=== PATIENT | male | born 1955 | race Hispanic/Latino ===

== ENCOUNTER 2016-12-11 11:24 | Emergency (ER) | payer BC ==
[2016-12-11 12:36] LABS: Basophils % (Auto) 0.8 % (0.0-1.8); Eosinophils % (Auto) 1.9 % (0.0-4.3); Hemoglobin 15.1 gm/dl (11.8-15.2); Mean Corpuscular HGB Conc 32 % (32-34); Mean Corpuscular Volume 81 fl (84-94); Platelet Count 281 K/mm3 (140-440); Red Blood Count 5.85 M/mm3 (3.65-5.03); Red Cell Distribution Width 14.3 % (13.2-15.2); White Blood Count 7.1 K/mm3 (4.5-11.0)
[2016-12-11 12:39] LABS: Hematocrit 47.3 % (35.5-45.6); Mean Corpuscular Hemoglobin 26 pg (28-32)
[2016-12-11 12:56] LABS: BUN/Creatinine Ratio 21.53; Calcium 10.4 mg/dL (8.4-10.2)
[2016-12-11 12:57] LABS: Chloride 87.9 mmol/L (98-107); Potassium 4.9 mmol/L (3.6-5.0)
[2016-12-11] MEDS ORDERED: NACL 0.9% 1000 ML 1,000 ML IV ONE ×2 (13:13→15:00)
[2016-12-11 13:47] LABS: B-Hydroxybutyrate 5.5 mg/dL (0.2-2.8)
--- NOTE | 2016-12-11 14:21 | Admit Criteria Form ---
Admission Criteria Documentation: DIABETES Clinical Indications for Admission to Inpatient Care (Place 'X' for any and all applicable criteria): Admission is indicated by presence of ALL (if I & II) or ANY ONE (if III or IV) of the following (1)(2)(3)(4): [ ]I. Diabetes is uncontrolled as indicated by ANY ONE of the following: [ ]a) Diabetic ketoacidosis as indicated by ALL of the following (8): [ ]i) Hyperglycemia (eg, plasma glucose greater than 200 mg/ dL (11.1 mmol/L)) [ ]ii) Acidosis (eg, arterial pH less than 7.30, serum bicarbonate level less than 15 mEq/L (mmol/L)) [ ]iii) Moderate ketonuria or ketonemia [ ]b) Hyperglycemic hyperosmolar state as indicated by ALL of the following(9)(10): [ ]i) Neurologic dysfunction (eg, stupor, coma, hemiparesis , seizure)(13) [ ]ii) Plasma glucose greater than 600 mg/dL (33.3 mmol/L) [ ]iii) Serum osmolality greater than 320 mOsm/kg (mmol/kg) [X]c) Severe signs or symptoms secondary to hyperglycemia indicated by ANY ONE of the following: [ ]i) Altered mental status(10) [ ]ii) Significant hypovolemia or dehydration [ ]iii) Intractable nausea or vomiting [ ]iv) Unexplained fever or severe infection [X]v) Severe electrolyte abnormality (eg, hypokalemia, hyperkalemia, hypernatremia) [ ]II. Management at other levels of care (Also use Diabetes: Observation Care as appropriate) is not feasible because of ANY ONE of the following: [ ]a) Condition was not adequately corrected with treatment at other levels of care. [ ]b) Treatment at other levels of care is not appropriate because of condition severity (eg, hyperosmolar coma). [X ]III. Contraindications and/or Inappropriate clinical situations for Observational Care in patients with Diabetes, when ANY ONE of the following is required: [ X]a) Patient require specific diagnostic workup or therapeutic intervention 22 [ ]b) Patient with abnormal vital signs or altered mental status 23 [ ]IV. General contraindications and/or Inappropriate clinical situations for Observational Care in patients with Diabetes, when ANY ONE of the following is required: [ ]a) Prediction of prolongation of LOS based on ANY ONE of the following may be considered as a contraindication for observational care 2, 3, 4, 5, 6, 7, 8, 9, 10, 11 [ ]i) Age > 65 yrs. [ ]ii) Patient arriving by ambulance [ ]iii) Patient with high acuity [ ]iv) Patient requiring vital sign monitoring [ ]v) Patient on IV medication [ ]b) Systolic blood pressures 180mmHg 3,12 [ ]c) Patient with altered mental status including delirium and other alteration of consciousness, (3) [ ]d) Patient whose discharge disposition will be to a snf home or rehabilitation home should not be managed in Emergency Department Observation Unit. CMS rule requires 3 days hospital stay before such placement.3,13 [ ]e) Patient with failure to thrive due to broad array of etiologies 3,16,17 [ ]f) Inability to ambulate 3,14 Extended stay beyond goal length of stay may be needed for(3)(20): [ ]a) Treatment of precipitating causes [ ]b) Development of hypoglycemia [ ]c) Complications of treatment [ ]d) Complications of decompensated diabetes (eg, acute gastric dilatation, persistent metabolic or neurologic derangement) [ ]e) Active Comorbidities [ ]f) Older patients( 65 years or older) The original [employer] content created by [employer] has been revised. The portions of the content which have been revised are identified through the use of italic text or in bold,and [facility] [employer] has neither reviewed nor approved the modified material. All other unmodified content is copyright [facility]. Please see references footnoted in the original [facility] edition 2016
--- NOTE | 2016-12-11 14:57 | Emergency Department Report ---
HPI - General Chief Complaint: Hyperglycemia Time Seen by Provider: 12/11/16 13:12 - HPI HPI: This is a 61-year-old -[place] male who presents to the emergency department with a complaint of a two-week history of excessive urination, increased thirst and some intermittent blurry vision. He went to see his primary care doctor this morning, Dr. Smith, who found him to have elevated blood sugar and told him to come to the emergency department for further evaluation. He was also told to return back to see the primary care doctor after release from the ER hospital for further management of his elevated blood sugar. He has no previous diagnosis of diabetes. He denies any other past medical history. He denies any nausea, vomiting, headache, chest pain, shortness of breath. He has not taken anything for symptoms prior to presentation. ED Past Medical Hx - Past Medical History Hx Hypertension: Yes (no longer requires meds per pt.) Hx Heart Attack/AMI: No Hx Diabetes: No Hx Liver Disease: No Hx Renal Disease: No Hx Sickle Cell Disease: No Hx Seizures: No Hx Asthma: No Hx COPD: No Hx HIV: No Additional medical history: appendicitis - Surgical History Past Surgical History?: Yes Hx Appendectomy: Yes - Social History Smoking Status: Never Smoker Substance Use Type: None - Medications Home Medications: Home Medications Medication Instructions Recorded Confirmed Last Taken Type HYDROcodone/APAP 5-325 [[place] 1 each PO Q6HR PRN #20 tablet 01/15/15 Unknown Rx 5/325] metFORMIN [Glucophage] 500 mg PO BID #60 tablet 12/11/16 Unknown Rx ED Review of Systems ROS: Stated complaint: HIGH BLOOD SUGAR Other details as noted in HPI Comment: All other systems reviewed and negative Constitutional: denies: chills, fever Eyes: vision change (intermittent blurred vision). denies: eye pain, eye discharge ENT: denies: ear pain, throat pain Respiratory: denies: cough, shortness of breath, wheezing Cardiovascular: denies: chest pain, palpitations Endocrine: increased thirst, increased urine Genitourinary: denies: urgency, dysuria Musculoskeletal: denies: back pain, joint swelling, arthralgia Skin: denies: rash, lesions Neurological: denies: headache, weakness, paresthesias Physical Exam - Physical Exam Vital Signs: Vital Signs 12/11/16 12/11/16 11:39 13:43 Temperature 98.2 F Pulse Rate 102 H Respiratory 18 Rate Blood Pressure 120/85 122/69 O2 Sat by Pulse 97 Oximetry Physical Exam: GENERAL: The patient is well-developed well-nourished. HEENT: Normocephalic. Atraumatic. Extraocular motions are intact. Patient has moist mucous membranes. Pupils equal reactive to light bilaterally. NECK: Supple. Trachea is midline. CHEST/LUNGS: Clear to auscultation. There is no respiratory distress noted. HEART/CARDIOVASCULAR: Regular. There is no tachycardia. There is no gallop rub or murmur. ABDOMEN: Abdomen is soft, nontender. Patient has normal bowel sounds. There is no abdominal distention. SKIN: There is no rash. There is no edema. There is no diaphoresis. NEURO: The patient is awake, alert, and oriented. The patient is cooperative. The patient has no focal neurologic deficits. The patient has normal speech. MUSCULOSKELETAL: There is no tenderness or deformity. There is no limitation range of motion. There is no evidence of acute injury. ED Course Vital Signs 12/11/16 12/11/16 11:39 13:43 Temperature 98.2 F Pulse Rate 102 H Respiratory 18 Rate Blood Pressure 120/85 122/69 O2 Sat by Pulse 97 Oximetry ED Medical Decision Making - Lab Data Result diagrams: 12/11/16 12:24 12/11/16 12:24 - Medical Decision Making 61-year-old male presents to the emergency department with hyperglycemia and new onset diabetes. The symptoms included polyuria, polydipsia and some intermittent blurred vision. Patient's labs do confirm new onset diabetes with a blood sugar of 490. There is no significant elevation in the anion gap and only 5 ketones in the serum. Patient's vital signs stable throughout his ED course. Patient was given 2 doses of IV insulin as well as 2 L of IV fluid and his blood sugars come down to about 300. Patient says that his symptoms have improved. Patient does not appear to be in diabetic ketoacidosis or HHNK. I spent a long time with this patient doing diabetic education. He will be started on metformin twice daily 500 mg but has been encouraged to see his primary care doctor within the next 24-48 hours for further education and discussion about his diabetes management. He will return to the ER with any worsening of his symptoms, or any acute distress. - Differential Diagnosis diabetes, DKA, HHNK, diabetes insipidus Critical Care Time: No Critical care attestation.: If time is entered above; I have spent that time in minutes in the direct care of this critically ill patient, excluding procedure time. ED Disposition Clinical Impression: Diabetes mellitus, new onset, Polyuria, Polydipsia Disposition: DISCHARGED TO HOME OR SELFCARE Is pt being admited?: No Condition: Good Instructions: Diabetes Mellitus Type 2 in Adults (ED) Additional Instructions: Please follow-up with your primary care doctor in the next 1-2 days without fail for reevaluation of your diabetes. I have started you on metformin, a oral diabetes medication. Please check with your primary care physician to make sure that is what they would like you to be taking. Try to stay away from foods and drinks that are high in sugar, carbohydrates and starch. Return to the emergency department with any worsening of your symptoms or any acute distress. Prescriptions: metFORMIN [Glucophage] 500 mg PO BID #60 tablet Referrals: PRIMARY CARE, [Primary Care Provider] - [facility] Time of Disposition: 15:57
[2016-12-11 15:44] LABS: Bilirubin,Urine NEG (Negative); Blood,Urine NEG (Negative); Ketones,Urine TR mg/dL (Negative); Leukocyte Esterase,Urine NEG (Negative); Nitrite,Urine NEG (Negative); Protein,Urine <15 mg/dL mg/dL (Negative); Urobilinogen,Urine < 2.0 mg/dL (<2.0)
[2016-12-11 16:14] VITALS: BP 108/72
== END 2016-12-11 16:43 | disposition home or self-care (01) ==
LOC: ED 11:24
DX: E11.9 Type 2 diabetes mellitus without complications (principal); R35.8 Other polyuria; R63.1 Polydipsia; I10 Essential (primary) hypertension; Z90.49 Acquired absence of other specified parts of digestive tract
CPT/HCPCS: 36415; 80048; 81001; 82010; 82805; 82962; 83930; 85025; 96361; 96374; 96376; 99284; J7030; J1815